=== PATIENT | female | born 1965 | race Caucasian/White ===

== ENCOUNTER 2016-11-15 06:40 | Day surgery (SDC) | payer OTHER ==
[~2016-11-15] VITALS: Ht 160 cm; Wt 71.8 kg
[2016-11-15] MEDS ORDERED: IMATREX (07:13)
[2016-11-15] MEDS ORDERED: ZOLOFT (07:13)
[2016-11-15] MEDS ORDERED: SIMVASTATIN (07:13)
[2016-11-15] MEDS ORDERED: OMEPRAZOLE (07:13)
[2016-11-15 07:14] VITALS: Ht 160 cm; Wt 71.8 kg
[2016-11-15 07:34] VITALS: BP 117/77; PULSE 59; RESP 24
[2016-11-15] MEDS ORDERED: FENTAnyl 50 MCG/ML VIAL ONE (08:11)
[2016-11-15] MEDS ORDERED: MIDAZOLAM 1 MG/ML 2 ML INJ ONE ×2 (08:11→08:12)
[2016-11-15 08:25] VITALS: BP 117/80; PULSE 64; RESP 14
--- NOTE | 2016-11-15 09:08 | GILP ---
DATE OF PROCEDURE: 11/15/2016 PROCEDURE PERFORMED: Colonoscopy. SURGEON: Dr. Pacheco. PREOPERATIVE DIAGNOSIS: Screening colonoscopy. POSTOPERATIVE DIAGNOSES: 1. Colonoscopy all the way to the cecum. 2. Diverticulosis of the colon. 3. Internal hemorrhoids. 4. No colon neoplasm was identified. INDICATION: Ms. Krupa Gonsales is a 51-year-old female patient who was scheduled for screening colonoscopy. The procedure and possible complications were well explained to the patient. She understood and consented to the procedure. DESCRIPTION OF PROCEDURE: Under the influence of fentanyl and Versed, the colonoscope was carefully introduced in the rectum, and under direct vision, it was advanced all the way to the cecum. FINDINGS: Patient had diverticulosis of the colon. She also had internal hemorrhoids. No colon neoplasm was identified. She tolerated the procedure very well. There was no complication from the procedure. At the end of procedure, she was awake with stable vital signs and she was discharged home in the care of her family. IMPRESSION: Please see postop diagnoses. PLAN: 1. Next screening colonoscopy in 10 years. 2. Patient was advised high-fiber diet. Dictated By: MD AISSATOU Hedrick/[email or web address]/henry /Document#: [id number] CC: Barbara Pacheco MD;*[facility]*
== END 2016-11-15 12:11 | disposition home or self-care (01) ==
LOC: GIL 06:40
PROVIDERS: ATTEND Internal Medicine Gastroenterology
DX: Z12.11 Encounter for screening for malignant neoplasm of colon (principal); K57.90 Diverticulosis of intestine, part unspecified, without perforation or abscess without bleeding; K64.8 Other hemorrhoids
CPT/HCPCS: 45378; J2250; J3010